=== PATIENT | male | born 2000 | race Caucasian/White ===

== ENCOUNTER 2022-05-16 09:55 | Emergency (ER) | payer OTHER, SELFPAY ==
[2022-05-16 09:56] VITALS: BP 128/85; PULSE 82; RESP 18; TEMP 36.8; O2SAT 99; BMI 29.3
--- NOTE | 2022-05-16 10:09 | EDS_ITS ---
HPI History of Present Illness Chief Complaint: Chest Pain Detail of Chief Complaint: Chest pain, dizziness, shortness of breath Informant: patient Narrative Narrative: Patient presents to the emergency department with complaint of chest discomfort as well as shortness of breath and dizziness. Patient states that he was sitting in class when he suddenly felt like his vision became blurred and he started feeling short of breath and developed some chest tightness. Patient vomited x1. Patient continues to have the chest discomfort that he rates a 5 out of 10. He describes a pulling and a heavy sensation. Patient states that he has been having episodes of anxiety recently. He does take gabapentin he thought that was for anxiety. Patient has no family history of heart disease. Denies recent travel or surgery. No history of PE or DVT. Denies recent illness. Prior similar symptoms: Yes [facility] Medical History (Updated 05/16/22 @ 11:[address] Miryam Ross, DO) Acute pharyngitis, unspecified Chronic neck and back pain Fatigue Frequent headaches Hypertension Lab test negative for COVID-19 virus SOB (shortness of breath) URI (upper respiratory infection) Home Medications lorazepam 1 mg tablet (Ativan) 1 mg PO TID PRN anxiety #10 tabs 05/16/22 [Rx Last Taken Unknown] Allergy/AdvReac Type Severity Reaction Status Date / Time No Known Allergies Allergy Verified 05/16/22 09:58 Family History Other Diabetes Social History (Updated 12/20/20 @ 08:06 by Tierney Martinez RN) Smoking Status: Current every day smoker tobacco type: smokeless tobacco Smokeless tobacco user: chewing tobacco and other alcohol intake: current alcohol intake frequency: 0-2 drinks per day Alcohol type: beer ROS ROS ED Review of Systems ROS Unobtainable: other Constitutional Constitutional ED: Reports lethargy; Denies chills, fever(s), sweats or weight loss Eyes Eyes: Denies blurry vision, change in vision or diplopia ENT ENT ED: Denies rhinorrhea or sore throat Cardiovascular Cardiovascular: Reports chest pain; Denies orthopnea or racing heartbeat Respiratory/Chest Respiratory/Chest: Reports dyspnea; Denies cough, dyspnea on exertion, orthopnea or sputum Gastrointestinal Gastrointestinal: Denies abdominal pain, diarrhea, nausea or vomiting Genitourinary Genitourinary ED: Denies dysuria, hematuria or urinary frequency Musculoskeletal Musculoskeletal: Denies arthralgias, back pain, myalgias or neck pain Integumentary Denies abscess, Abrasions or rash Neurologic Neurologic: Denies headache(s) or weakness Psychiatric Psychiatric: Reports anxiety; Denies depression or suicidal thoughts Endocrine Endocrinology: Denies polydipsia, polyphagia or polyuria Hematologic/Lymphatic Hematologic/Lymphatic: Denies easy bleeding, easy bruising or lymphadenopathy Allergic/Immunologic Allergic/Immunologic ED: Denies mouth swelling, tongue swelling or urticaria EXAM Physical Exam Const Vital Signs: 05/16/22 09:56 Temperature 98.2 F Temperature Source Temporal Pulse Rate 82 Respiratory Rate 18 Blood Pressure 128/85 H Blood Pressure Mean 99 Pulse Ox 99 Oxygen Delivery Method Room Air Positive well nourished and well developed General Appearance ED: well developed and NAD HEENT Reports TM's clear and moist mucous membranes normocephalic and atraumatic; Negative for trauma or tenderness Tympanic Membrane ED: Yes TM's clear Eyes PERRL and EOMs intact bilaterally General Eye ED: Negative for pale conjunctiva or scleral icterus Neck no lymphadenopathy, supple and no JVD General: Negative for tenderness Chest Wall inspection of chest normal and palpation of chest normal Chest: Negative for tenderness Resp normal respiratory effort and clear to auscultation bilaterally Effort and Inspection: Negative for respiratory distress or pain with movement Auscultation: Negative for rhonchi, wheezes or diminished lung sounds Cardio regular rate, regular rhythm, S1 normal heart sound, S2 normal heart sound and no murmurs Peripheral Pulses: pulses 2+ throughout GI normal to inspection, nondistended, normoactive bowel sounds, soft to palpation, non-tender, non-distended and no masses Back/Spine no CVA tenderness and no thoracic nor lumbar tenderness Extremity normal to inspection General Extremety ED: Negative for edema General Extremity: Negative for edema Neuro oriented x3, CN's II-XII intact bilaterally, no sensory deficits noted and gait normal Sensorium / Orientation: awake, alert, oriented to person, oriented to place and oriented to time Motor Exam: strength 5/5 throughout and strength abnormal Psych mental status grossly normal Skin no rashes or lesions noted and no wounds MDM MDM MDM Narrative Medical decision making narrative: Patient presents with chest pain and shortness of breath as well as other symptoms of blurred vision and nausea and vomiting. History of anxiety. Patient with no significant risk factors for heart disease. Patient no significant risk factors for PE or DVT. EKG obtained on arrival shows sinus rhythm with a rate of 75 bpm with no acute ST segment changes and no evidence for pericarditis. Patient chest x-ray obtained interpreted by myself as no evidence of infiltrate or pneumothorax and no acute disease process. Radiology in agreement. Patient did feel somewhat improved after Ativan. He states his discomfort is still slightly there but worse with movement of his arm. I suspect possibly musculoskeletal etiology as well. Patient tells me now that he drinks about 5-10 beers a day and the other day he only had 3. He does not want to have alcohol detox. I explained that some anxiety could be related to decreasing alcohol intake abruptly and the fact that he might be having some withdrawal symptoms as well. I recommended that if he wants to quit drinking to do it slowly over time. Patient will be given a prescription for Ativan as needed for anxiety. Patient advised to follow-up with his primary care physician within next 3 to 5 days and discuss possible treatment for anxiety wit h long-term medication. Radiography Diagnostic Testing: Clinical Impression(s) from Imaging Studies Chest X-Ray 05/16/22 10:16 IMPRESSION: Normal x-ray examination of the chest. Electronically Signed: Angel Cox MD at 10:32 EDT , 1 view chest x-ray obtained interpreted by myself as no acute disease process. There is no evidence of infiltrate or pneumothorax. Radiology in agreement. Discharge Plan Triage Chief Complaint: Chest Pain ED Provider: Miryam Ross Dx/Rx/DC Orders Clinical Impression: Chest pain, Anxiety, Alcohol abuse Instructions: ED Anxiety Reaction, ED Chest Pain, Uncertain Cause, ED Alcohol Abuse Prescriptions: New lorazepam [Ativan] 1 mg tablet 1 mg PO TID PRN (Reason: anxiety) Qty: 10 0RF Primary Care Provider: Care Physician,No Primary Referrals: Care Physician,No Primary [Primary Care Provider] - Activity Restrictions/Additional Instructions: See your primary care physician within next 3 to 5 days. Disposition Disposition: Home, Self Care
--- NOTE | 2022-05-16 10:16 | RAD_ITS ---
STUDY: X-RAY CHEST REASON FOR EXAM: Male, 21 years old. Chest pain TECHNIQUE: Single AP portable view of the chest. COMPARISON: None. FINDINGS: The lungs are clear and expanded. There is no demonstrated pleural abnormality. Normal size heart. Normal mediastinum and pete. Normal visualized pulmonary arteries. Normal visualized aortic arch and descending thoracic aorta. Normal visualized thoracic spine. Normal visualized ribs, clavicles, and shoulders. There is no demonstrated abnormality of the visualized soft tissue structures of the upper abdomen. RAD/Chest 1 View (Portable) IMPRESSION: Normal x-ray examination of the chest. Electronically Signed: Angel Cox MD at 10:32 EDT ,
[2022-05-16] MEDS: LORazepam 1 MG Tablet PO (10:21)
--- NOTE | 2022-05-16 11:04 | EKG12_ITS ---
Test Reason : CP Blood Pressure : / mmHG Vent. Rate : 075 BPM Atrial Rate : 075 BPM P-R Int : 118 ms QRS Dur : 092 ms QT Int : 364 ms P-R-T Axes : 049 052 034 degrees QTc Int : 406 ms Normal sinus rhythm Normal ECG Confirmed by FREDDIE SALEH, HEATHER ([id number]), editorial project manager BANDAR MELENDEZ ([id number]) on 05/20/2022 10:45:04 AM Referred By: RONNIE Confirmed By:BA FRAZIER MD
== END 2022-05-16 11:30 | disposition home or self-care (01) ==
PROVIDERS: Emergency Provider Emergency Medicine; Visit Provider Emergency Medicine
DX: R07.9 Chest pain, unspecified (principal); F41.9 Anxiety disorder, unspecified; F10.10 Alcohol abuse, uncomplicated; F17.220 Nicotine dependence, chewing tobacco, uncomplicated
CPT/HCPCS: 71045; 93005; 99283